=== PATIENT | male | born 1960 | race Caucasian/White ===

== ENCOUNTER 2016-08-05 17:09 | Emergency (ER) | payer OTHER ==
--- NOTE | ~2016-08-05 | EKG ---
PATIENT: BERTA PARKER UNIT #: [id number] Ventricular Rate: 68 BPM Atrial Rate: 68 BPM P-R Interval: 166 ms QRS Duration: 88 ms Q-T Interval: 446 ms QTC Calculation(Bezet): 474 ms P [place]: 70 degrees Calculated R [place]: 3 degrees Calculated T [place]: 46 degrees Diagnosis Line: Normal sinus rhythm Diagnosis Line: Low voltage QRS Diagnosis Line: Otherwise normal ECG Diagnosis Line: When compared with ECG of 22-SEP-2012 06:23, Diagnosis Line: No significant change was found Diagnosis Line: Confirmed by TAN CANADA MD ([id number]) on 08/09/2016 Diagnosis Line: 10:39:30 PM INTERPRETING MD: NANCIE ECHEVARRIA
--- NOTE | ~2016-08-05 | CT2 ---
[facility] A Service of [facility] RADIOLOGY TEXT RESULTS PATIENT: BERTA PARKER LOCATION: [facility] : 58 UNIT #: [id number] AGE: [address]: Donn Howard MD SEX: M ORDER DR: [id number] [facility] [place], [place] [address] [id number] MR#: [id number] Acc #: [id number] NAME: BERTA PARKER : 1960 SEX: M STUDY DATE/TIME: 08/05/2016 17:49 UNIT: [facility] ROOM: STUDY DESCRIPTION: CT Abd and Pelv W Cont Attending Physician: Dandre Howard M.D. Ordering Physician: Christian Hancock M.D. Primary Care Physician: Jasmin Farrar M.D. MEDICAL IMAGING REPORT This report is preliminary unless electronic signature is present EXAM CT abdomen and pelvis with contrast HISTORY A 56-year-old male, abdominal pain x2 hours, right-sided abdominal pain nausea vomiting COMPARISON CT abdomen and pelvis 09/22/[address] exam was performed with one or more of the following radiation dose reduction techniques: automatic exposure control, adjustment of mA and/or kV according to patient size, and iterative reconstruction. FINDINGS Axial images performed through the abdomen and pelvis following IV and oral contrast. Multiplanar reconstructed images are reviewed at a workstation. Abdomen: Lung bases unremarkable. Liver, spleen, gallbladder appear normal. Pancreas and adrenal glands unremarkable. The right kidney demonstrates mild perinephric edema. Mild right-sided hydronephrosis and hydroureter with a 4 mm distal right ureteral stone just above the UVJ. The left kidney is abnormal demonstrating a 6.1 x 6.2 x 6.4 cm exophytic mass off the lower pole left kidney which appears to represent a solid lesion and is highly concerning for renal neoplasm. Further evaluation and workup is recommended. Visualized GI tract unremarkable except for scattered diverticular changes. Pelvis: Bladder and prostate appear normal. Osseous structures [facility] A Service of [facility] RADIOLOGY TEXT RESULTS PATIENT: BERTA PARKER LOCATION: [facility] : 58 UNIT #: [id number] AGE: [address]: Donn Howard MD SEX: M ORDER DR: remarkable for degenerative disc disease facet arthropathy lower lumbar spine. There is a pneumatocyst and posterior disc protrusion osteophyte at the L4-5 level extending into the right L4-5 lateral recess. Degenerative change also noted lower thoracic spine. IMPRESSION 1. 4 mm right UVJ stone with mild right-sided hydronephrosis and a small amount of right perinephric edema. Findings compatible acute obstruction. 2. 6.4 cm solid-appearing mass lower pole left kidney highly concerning for malignant renal neoplasm. Further evaluation and workup is recommended. 3. Multilevel degenerative disc disease facet arthropathy lower lumbar spine. These findings were called to Dr. Thaddeus Hancock in the emergency room following this dictation Dictated by... Francisco Brizuela M.D. THIS IS AN ELECTRONICALLY VERIFIED REPORT Francisco Brizuela M.D. at 08/05/2016 10:39 PM Klarissa TD: 08/05/2016 21:26 JOB #: [id number] MEDICAL IMAGING REPORT Page 1 of 1 COPY
[2016-08-05 16:45] LABS: BASOPHIL% 0.3 % (0-2.5); EOSINOPHIL% 0.3 % (0.0-7.0); HEMATOCRIT 37.6 % (38.0-50.0); HEMOGLOBIN 12.4 gm/dL (13.0-16.0); LYMPHOCYTE# 1.9 X10e3 (1.0-3.5); LYMPHOCYTE% 12.8 % (17.0-45.0); MEAN CELL VOLUME 81.3 FL (83-96); MEAN CORPUSCULAR HEMOGLOBIN 26.7 PG (28-34); MEAN CORPUSCULAR HGB CONC 32.9 g/dL (30-36); MEAN PLATELET VOLUME 6.6 FL (6.5-11.5); MONOCYTE# 0.9 X10e3 (0-1.0); MONOCYTE% 5.9 % (3.0-12.0); NEUTROPHIL# 11.8 X10e3 (1.5-7.1); NEUTROPHIL% 80.7 % (40-75); PLATELET COUNT 547 X10e3 (140-420); RED BLOOD COUNT 4.62 X10e (3.90-5.60); RED CELL DISTRIBUTION WIDTH 13.8 % (11.0-15.5); WHITE BLOOD COUNT 14.7 X10e3 (4.0-10.5)
[2016-08-05 16:48] LABS: DIFF IND NO
[~2016-08-05 17:09] MED LIST: BYSTOLIC5 MG PO; LISINOPRIL PO; MEVACOR40 MG PO; MYLANTA DO150 ML SUS PO; PROZAC PO; WELLBUTRIN PO
[2016-08-05 17:11] LABS: BILIRUBIN, DIRECT 0.1 mg/dL (0.0-0.2); BILIRUBIN,INDIRECT 0.4 mg/dL (0.0-0.9); BILIRUBIN,TOTAL 0.5 mg/dL (0.2-2.0); BUN/CREATININE RATIO 22.72; CALCIUM SERUM 9.5 mg/dL (8.4-10.2); CREATININE SERUM 1.1 mg/dL (0.6-1.4); GLOM FILT RATE Estimated 74.1 mL/min (>60); POTASSIUM 4.4 mmol/L (3.5-5.1); PROTEIN TOTAL SERUM 7.8 g/dL (6.0-8.3)
[2016-08-05 17:17] LABS: URINE SOURCE CLEAN CATCH
[2016-08-05 17:34] LABS: URINE APPEARANCE CLEAR; URINE BILIRUBIN NEG (NEG); URINE BLOOD NEG (NEG); URINE COLOR YELLOW; URINE GLUCOSE NEG (NEG); URINE KETONE 2+ (NEG); URINE LEUKOCYTE ESTERASE TRACE (NEG); URINE NITRATE NEG (NEG); URINE PH 7.5 (5-8); URINE PROTEIN 1+ (NEG); URINE SPECIFIC GRAVITY 1.029 (1.003-1.035); URINE UROBILINOGEN 0.2 MG/DL (NEG)
[2016-08-05 17:42] LABS: URINE BACTERIA AUWI NEG (NEGATIVE); URINE SQUAMOUS EPITHELIAL CELL NONE SEEN /[HPF]; UWBCS1 AUWI 0-2 (0-5)
[2016-08-05 17:43] LABS: INFLUENZA A NEG (NEG); INFLUENZA B NEG (NEG)
[2016-08-05 17:44] LABS: CULTURE INDICATED? NO
[2016-08-05 17:46] LABS: AMPHETAMINE NEG (NEG); BARBITURATES NEG (NEG); BENZODIAZEPINES NEG (NEG); COCAINE NEG (NEG); MARIJUANA POS (NEG); OPIATES NEG (NEG); TRICYCLIC ANTIDEPRESSANTS POS (NEG); U METHADONE NEG (NEG)
== END 2016-08-05 19:38 | disposition home or self-care (01) ==
LOC: CED 17:09
PROVIDERS: Emergency Medicine
DX: N13.2 Hydronephrosis with renal and ureteral calculous obstruction (principal); F32.9 Major depressive disorder, single episode, unspecified; K21.9 Gastro-esophageal reflux disease without esophagitis; Z88.0 Allergy status to penicillin; Z88.5 Allergy status to narcotic agent; Z79.899 Other long term (current) drug therapy
CPT/HCPCS: 36415; 74177; 80048; 80076; 80307; 81003; 82150; 83690; 85025; 87804; 93005; 96361; 96374; 96375; 96376; 99284; J1170; J2405; Q9967